=== PATIENT | male | born 1990 | race Caucasian/White ===

== ENCOUNTER 2017-02-18 16:43 | Emergency (ER) | payer OTHER ==
[~2017-02-18] VITALS: Ht 167.6 cm; Wt 68.0 kg
[2017-02-18] MEDS ORDERED: MUCINEX COLD L118 ML (17:03)
== END 2017-02-18 19:23 | disposition home or self-care (01) ==
LOC: ER 16:43
DX: J11.1 Influenza due to unidentified influenza virus with other respiratory manifestations (principal); J06.9 Acute upper respiratory infection, unspecified